=== PATIENT | male | born 1985 | race Caucasian/White ===

== ENCOUNTER 2023-09-25 07:18 | Emergency (ER) | payer OTHER, SELFPAY ==
[2023-09-25 07:19] VITALS: BP 154/93
[2023-09-25 08:17] VITALS: BMI 21.5
--- NOTE | 2023-09-25 09:39 | ED.GENMED ---
History of Present Illness
General
Chief Complaint: Musculo-Skeletal Complaint
Source: patient
Exam Limitations: none
Time Seen by Provider: 09/25/23 08:00
Nursing documentation reviewed up to this point in time: agreed with
Travel History
Have you had any contact with someone who has COVID-19?: No
Do you have any symptoms of coronavirus? Fever > 100 degrees, chills, cough, shortness of breath, sore throat, loss of taste or smell, muscle aches, or headache?: No
History of Present Illness
History of Present Illness:
38-year-old male with past medical history of seizures asthma hypertension presenting to the emergency department today with concerns of right-sided hand discomfort and swelling. He claims that he was banging on the shed due to his cat. He also
may have been bit by his cat he is unsure though. This occurred last night has no swelling today which prompted come to the ER. Denies fevers or systemic symptoms.
Past History
Past History
ED Past Medical History: Asthma, GERD, HTN, NIDDM, Seizures and Other (Seizure episode 4 years ago)
ED Past Surgical History: None
Social History
Tobacco: Former smoker
Alcohol: Binge drinker
Drug: Marijuana
Personal: Single
Living: with roommate
Employment: Employed
Family History
Family History: Other (n/c); Negative CAD
Review of Systems
Review of Systems
Allergies reviewed?: Yes
All Other Systems: ROS reviewed and negative except as documented in HPI and ROS
Phy Exam
Physical Exam
Physical Exam:
GENERAL: Alert , in no apparent distress
EYE: pupils equal and reactive
NECK: Supple, no significant adenopathy.
ENT: o/p clr, mmm.
CARDIAC: Regular rate and rhythm .
LUNGS: Clear breath sounds bilaterally, no acute respiratory distress, no wheezes/rales/rhonchi
ABDOMEN: Soft, without focal tenderness, no r/g, no cvat
NEUROLOGICAL: Alert and oriented, no focal neuro deficits
SKIN: Small scabbed over skin injury to the right hand overlying the second and third metacarpal on the dorsal aspect mild redness and swelling tenderness palpation to the area good range of motion otherwise good workers compensation claims examiner strength. Warm and dry, skin
intact.
MUSCULOSKELETAL: No edema, well perfused.
PSYCH: Normal and appropriate interaction.
Course
Orders/Labs/Results
Orders:
Orders
09/25/23 07:46
CR Hand - Right Min 3 Views Urgent
Comment:
Reason For Exam: pain/swelling
09/25/23 09:36
Amoxicillin 875 mg/Clav 125 mg [Augmentin 875 mg/125 mg] 1 tablet PO NOW STA
Vital Signs
Initial and Last Documented VS:
Initial Vital Signs
Temp Pulse Resp BP Pulse Ox
98.3 F 95 20 154/93 98
09/25/23 07:19 09/25/23 07:19 09/25/23 07:19 09/25/23 07:19 09/25/23 07:19
Last Documented Vital Signs
Temp Pulse Resp BP Pulse Ox
98.3 F 95 20 154/93 98
09/25/23 07:19 09/25/23 07:19 09/25/23 07:19 09/25/23 07:19 09/25/23 07:19
MDM/Problems Addressed
MDM/Problems Addressed:
38-year-old male presenting to the emergency department today with concerns of right-sided hand swelling discomfort starting yesterday was potentially bit by his cat and also hit his hand against a shed door. X-ray without signs of fracture. There
is concern that potentially could be a cat bite though the wounds are scabbed over and very small. Patient was given Augmentin. Area of redness and swelling very minimal was explained to the patient that if there is progression that he should
immediately return for reassessment. Otherwise treated for concern of early infection or as prophylaxis for potential cat bite to the hand.
*Critical Care Note
Total Time (30-74mins, 75-104mins- exclusive of procedures): Not Applicable
ED Attending Note
-
Portions of this chart may have been created with voice recognition software.� Occasional wrong word or��sound alike� substitutions may have occurred due to the inherent limitations of voice recognition software.
Discharge Plan
Departure
Patient Disposition: Home (Routine Discharge)
Date of Disposition: 09/25/23
Time of Disposition: 09:42
Patient with high blood pressure during this ER visit?: No
Condition: Good
Covid-19: Not Applicable
Discharge Problem:
Cat bite of right hand
Instructions: Animal Bites ED
Prescriptions:
New
amoxicillin-pot clavulanate 875-125 mg tablet
1 tab PO BID 7 Days Qty: 14 0RF
No Action
quetiapine [Seroquel] 200 mg Tablet
200 mg PO HS
lorazepam [Ativan] 2 mg Tablet
2 mg PO BID PRN (Reason: anixety)
levetiracetam [Keppra] 500 mg tablet
500 mg PO Q12H Qty: 60 0RF
hydroxyzine pamoate [Vistaril] 100 mg Capsule
100 mg PO HS PRN (Reason: anxiety, sleep)
trazodone 100 mg Tablet
100 mg PO HS
Propanalol
10 mg PO DAILY
ondansetron 4 mg tablet,disintegrating
4 mg PO Q8H PRN (Reason: nausea and vomiting) Qty: 7 0RF
Referrals:
NONE,* [Family Provider] -
Stand Alone Forms: Return to Work
Activity Restrictions/Additional Instructions:
You came to the emergency department today with concerns of swelling discomfort to the right hand. This is concern for a cat bite please take Augmentin twice daily for neck 7 days and keep the area clean and covered. Please have close with the
primary care doctor within 1 week for reassessment. Return to the emergency department for any worsening, new or concerning symptoms.
Interventions
Interventions:
*Risk Screen - Suicide Last Done: 09/25/23 07:19
*General Assessment Last Done: 09/25/23 07:19
*Neglect/Abuse Screening Last Done: 09/25/23 07:19
ED-Musculoskeletal Assessment Last Done: 09/25/23 08:17
Discharge Date and Time
Print Language: AZERI
[2023-09-25] MEDS: AUGMENTIN 875 MG/125 MG 1 TABLET PO (09:43)
== END 2023-09-25 10:01 | disposition home or self-care (01) ==
LOC: EMR 07:18
PROVIDERS: EMERGENCY PHYSICIAN Emergency Medicine
DX: S61.451A Open bite of right hand, initial encounter (principal); W55.01XA Bitten by cat, initial encounter; Z87.891 Personal history of nicotine dependence; I10 Essential (primary) hypertension; J45.909 Unspecified asthma, uncomplicated
CPT/HCPCS: 99283; 73130

== ENCOUNTER 2025-02-20 13:14 | Emergency (ER) | payer OTHER, SELFPAY ==
[2025-02-20] VITALS (8 sets, daily range): BP systolic 128–174; BP diastolic 74–113; BMI 27.4
[2025-02-20 14:01] LABS: Hematocrit 48.5 % (39.0-52.0); Hemoglobin 15.1 g/dL (13.0-18.0); Mean Corp Hgb Conc. 31.1 g/dL (33.0-37.0); Mean Corpuscular Volume 84.8 fL (80.0-94.0); Nucleated Red Blood Cells % 0 % (-); Platelet Count 342 10^3/uL (130-400); Red Cell Dist. Width 17.2 % (11.5-14.5)
[2025-02-20 14:23] LABS: Blood Urea Nitrogen 13 mg/dl (9-20); Calcium 8.7 mg/dl (8.4-10.2); Carbon Dioxide 23 mmol/L (22-30); Chloride 107 mmol/L (98-107); Glucose 122 mg/dl (70-99); Potassium 4.6 mmol/L (3.5-5.1); Sodium 145 mmol/L (135-145); eGFR > 60.00
[2025-02-20] MEDS: MULTIVITAMIN 1011 ML IV (16:34)
[2025-02-20] MEDS: MULTIVITAMIN 1011 MG IV (16:34)
--- NOTE | 2025-02-20 16:46 | ED.GENMED ---
History of Present Illness
<Tristan Estrella MD - Last Filed: 02/21/25 16:46>
General
Chief Complaint: Alcohol Problem
Source: patient and family (Sister)
Time Seen by Provider: 02/20/25 15:29
History of Present Illness
History of Present Illness:
39-year-old male with alcohol use disorder. Presents intoxicated. Family took him directly to [facility] but they felt he needed medical evaluation for his intoxication. Patient admits to depression since his mother has but denies
suicidal ideation or plan. Admits to drinking earlier today.
Past History
<Tristan Estrella MD - Last Filed: 02/21/25 16:46>
Past History
ED Past Medical History: Asthma, GERD, HTN, NIDDM, Seizures and Other (Seizure episode 4 years ago)
ED Past Surgical History: None
Social History
Tobacco: Former smoker
Alcohol: Binge drinker
Drug: Marijuana
Personal: Single
Living: with roommate
Employment: Employed
Family History
Family History: Other (n/c); Negative CAD
Review of Systems
<Tristan Estrella MD - Last Filed: 02/21/25 16:46>
Review of Systems
All Other Systems: Not applicable
Respiratory: Reports no symptoms
Cardiac: Reports no symptoms
Phy Exam
<Tristan Estrella MD - Last Filed: 02/21/25 16:46>
Physical Exam
Physical Exam:
GENERAL: Alert and oriented in no apparent distress. Normocephalic atraumatic
EYE: Orbits normal.
NECK: Supple, nontender mildly tachycardic and regular no murmur
ENT: Pharynx without erythema
CARDIAC: Tachycardic and regular no murmur
LUNGS: Clear breath sounds,normal
ABDOMEN: Soft, without focal tenderness or distention
NEUROLOGICAL: Alert and oriented , grossly non-focal. Moderately intoxicated
SKIN: Warm and dry, no rash or lesion, no discoloration, skin intact.
MUSCULOSKELETAL: No edema,no deformity.Good color
PSYCH: Normal and appropriate interaction. Cooperative. Moderately intoxicated
Scores
<Tristan Estrella MD - Last Filed: 02/21/25 16:46>
Withdrawal Assessment of Alcohol
Withdrawal Assessment Completed?: Not applicable
Course
<Tristan Estrella MD - Last Filed: 02/21/25 16:46>
Orders/Labs/Results
Orders:
Orders
02/20/25 13:46
Alcohol Urgent
Basic Metabolic Panel Urgent
CBC/With Diff [Complete Blood Count/With Diff] Urgent
02/20/25 15:49
0.9% Sodium Chloride 1000 ml [Nss] 1,000 ml Mvi, Adult [Multivitamin] 10 ml Thiamine Injection 100 mg IV 500 mls/hr
02/20/25 16:00
0.9% Sodium Chloride 1000 ml [Nss] 1,000 ml Mvi, Adult [Multivitamin] 10 ml Thiamine Injection 100 mg IV 500 mls/hr
02/20/25 16:47
Ondansetron Injectable [Zofran] 4 mg .ROUTE .STK-MED ONE
02/20/25 16:50
Ondansetron Injectable [Zofran] 4 mg IV NOW STA
02/20/25 17:27
Metoprolol [Lopressor] 5 mg IV NOW STA
02/20/25 17:59
Add On- LAB Urgent
Tests Added?: alcohol level
Mag Hydrox/Al Hydrox/Simeth [Maalox] 30 ml Phenobarb/Hyoscy/Atropine/Scop [] 10 ml PO NOW
Pantoprazole [Protonix IV] 40 mg IV NOW STA
02/20/25 18:00
Phenobarb/Hyoscy/Atropine/Scop [] 10 ml .ROUTE .STK-MED ONE
02/20/25 18:01
Mag Hydrox/Al Hydrox/Simeth [Maalox] 30 ml .ROUTE .STK-MED ONE
02/20/25 18:16
Lorazepam [Ativan] 1 mg PO NOW STA
02/20/25 19:00
Lorazepam [Ativan] 2 mg PO Q4HPRN PRN
Abnormal Lab Results
02/20/25
13:46
MCH 26.4 L pg
(27.0-31.0)
MCHC 31.1 L g/dL
(33.0-37.0)
RDW 17.2 H %
(11.5-14.5)
Absolute Neuts (auto) 6.6 H 10^3/uL
(1.4-6.5)
Glucose 122 H mg/dl
(70-99)
Alcohol, Quantitative 520 H* mg/dl
02/20/25 13:46
02/20/25 13:46
Vital Signs
Initial and Last Documented VS:
Initial Vital Signs
Temp Pulse Resp BP Pulse Ox
98.5 F 127 18 174/106 96
02/20/25 13:21 02/20/25 13:21 02/20/25 13:21 02/20/25 13:21 02/20/25 13:21
Last Documented Vital Signs
Temp Pulse Resp BP Pulse Ox
98.5 F 115 14 128/74 98
02/20/25 13:21 02/20/25 20:45 02/20/25 20:45 02/20/25 20:00 02/20/25 17:15
Marlenlt;Minnie Ariza, DO - Last Filed: 02/20/25 19:46>
Orders/Labs/Results
Orders:
Orders
02/20/25 13:46
Alcohol Urgent
Basic Metabolic Panel Urgent
CBC/With Diff [Complete Blood Count/With Diff] Urgent
02/20/25 15:49
0.9% Sodium Chloride 1000 ml [Nss] 1,000 ml Mvi, Adult [Multivitamin] 10 ml Thiamine Injection 100 mg IV 500 mls/hr
02/20/25 16:00
0.9% Sodium Chloride 1000 ml [Nss] 1,000 ml Mvi, Adult [Multivitamin] 10 ml Thiamine Injection 100 mg IV 500 mls/hr
02/20/25 16:47
Ondansetron Injectable [Zofran] 4 mg .ROUTE .STK-MED ONE
02/20/25 16:50
Ondansetron Injectable [Zofran] 4 mg IV NOW STA
02/20/25 17:27
Metoprolol [Lopressor] 5 mg IV NOW STA
02/20/25 17:59
Add On- LAB Urgent
Tests Added?: alcohol level
Mag Hydrox/Al Hydrox/Simeth [Maalox] 30 ml Phenobarb/Hyoscy/Atropine/Scop [] 10 ml PO NOW
Pantoprazole [Protonix IV] 40 mg IV NOW STA
02/20/25 18:00
Phenobarb/Hyoscy/Atropine/Scop [] 10 ml .ROUTE .STK-MED ONE
02/20/25 18:01
Mag Hydrox/Al Hydrox/Simeth [Maalox] 30 ml .ROUTE .STK-MED ONE
02/20/25 18:16
Lorazepam [Ativan] 1 mg PO NOW STA
02/20/25 19:00
Lorazepam [Ativan] 2 mg PO Q4HPRN PRN
Abnormal Lab Results
02/20/25
13:46
MCH 26.4 L pg
(27.0-31.0)
MCHC 31.1 L g/dL
(33.0-37.0)
RDW 17.2 H %
(11.5-14.5)
Absolute Neuts (auto) 6.6 H 10^3/uL
(1.4-6.5)
Glucose 122 H mg/dl
(70-99)
Alcohol, Quantitative 520 H* mg/dl
02/20/25 13:46
02/20/25 13:46
Vital Signs
Initial and Last Documented VS:
Initial Vital Signs
Temp Pulse Resp BP Pulse Ox
98.5 F 127 18 174/106 96
02/20/25 13:21 02/20/25 13:21 02/20/25 13:21 02/20/25 13:21 02/20/25 13:21
Last Documented Vital Signs
Temp Pulse Resp BP Pulse Ox
98.5 F 115 14 128/74 98
02/20/25 13:21 02/20/25 20:45 02/20/25 20:45 02/20/25 20:00 02/20/25 17:15
<Tristan Estrella MD - Last Filed: 02/21/25 16:46>
MDM/Problems Addressed
Differential Diagnosis Includes:
Patient presents for help for his alcohol use disorder. Clinically there is no acute medical issues going on. He is acutely intoxicated but alert. No indication or reason for checking alcohol levels at this time. His levels would not necessarily
correlate with his clinical neurologic findings. We will give him banana bag fluids observation and contact [facility] for help for his alcohol use disorder. Admits to depression but is not suicidal. Patient sister is going home but states they are
here for support and could come get him if needed.
<Tristan Estrella MD - Last Filed: 02/21/25 16:46>
*Pulse Oximetry
SaO2: 97
Oxygen Mode of Delivery: Room air
Patient hypoxic: no
*Critical Care Note
Total Time (30-74mins, 75-104mins- exclusive of procedures): Not Applicable
<Tristan Estrella MD - Last Filed: 02/21/25 16:46>
Update Note
Update Note:
I talked to [facility] who will talk to the patient. He clearly is noncompliant with the medications. Blood pressures are elevated and reviewing previous records has been chronically elevated. Will restart blood pressure medication. Dose of
Lopressor here for mild tachycardia and hypertension. Will give referral for family practice follow-up for clinic follow-up. At this time and no withdrawal.
Patient will be given a green wrapper for some reflux symptoms. And also Protonix. [facility]iscussed with [facility]. They recommended contacting [facility] to see if they would accept him because of his significant withdrawal seizure issue.
<Minnie Ariza DO - Last Filed: 02/20/25 19:46>
Update Note
Update Note:
I talked to [facility] who will talk to the patient. He clearly is noncompliant with the medications. Blood pressures are elevated and reviewing previous records has been chronically elevated. Will restart blood pressure medication. Dose of
Lopressor here for mild tachycardia and hypertension. Will give referral for family practice follow-up for clinic follow-up. At this time and no withdrawal.
Patient will be given a green wrapper for some reflux symptoms. And also Protonix. Discussed with [facility]. They recommended contacting [facility] to see if they would accept him because of his significant withdrawal seizure issue.
ED Attending Note
<Tristan Estrella MD - Last Filed: 02/21/25 16:46>
-
Portions of this chart may have been created with voice recognition software.� Occasional wrong word or��sound alike� substitutions may have occurred due to the inherent limitations of voice recognition software.
<Minnie Ariza DO - Last Filed: 02/20/25 19:46>
ED Attending Note
ED Attending Note:
Full patient care assumed by me at end of attending shift pending placement for alcohol use disorder with history of alcohol withdrawal seizures. I spoke with Dr. Xiong at [facility] who accepts patient for admission for further care.
Patient is resting comfortably. Additional as needed Ativan is ordered to be available should patient feel anxiety or feelings of withdrawal while awaiting transport.
Discharge Plan
Departure
Patient Disposition: [facility]
Date of Disposition: 02/20/25
Time of Disposition: 19:44
Admit to doctor: Dr Xiong
Patient with high blood pressure during this ER visit?: Yes
Discharge Problem:
Alcohol use disorder
Instructions: Alcohol Use Disorder (DC), BLOOD PRESSURE
Prescriptions:
New
amlodipine 5 mg tablet
5 mg PO DAILY Qty: 30 0RF
No Action
quetiapine [Seroquel] 200 mg Tablet
200 mg PO HS
lorazepam [Ativan] 2 mg Tablet
2 mg PO BID PRN (Reason: anixety)
levetiracetam [Keppra] 500 mg tablet
500 mg PO Q12H Qty: 60 0RF
hydroxyzine pamoate [Vistaril] 100 mg Capsule
100 mg PO HS PRN (Reason: anxiety, sleep)
trazodone 100 mg Tablet
100 mg PO HS
Propanalol
10 mg PO DAILY
ondansetron 4 mg tablet,disintegrating
4 mg PO Q8H PRN (Reason: nausea and vomiting) Qty: 7 0RF
amoxicillin-pot clavulanate 875-125 mg tablet
1 tab PO BID 7 Days Qty: 14 0RF
Referrals:
[facility] [Provider Group] - Next open appointment
[facility] [Outside] - Next open appointment
NONE,* [Family Provider, Internal Medicine]
Activity Restrictions/Additional Instructions:
You clearly should be on blood pressure medications. I gave you prescription. You absolutely need close follow-up with a primary care physician.
I gave you 2 options above.
Follow-up per [facility]
Hospital Transfer
Other hospital: [facility]
I certify that the patient requires transfer: Yes
Discussed case with accepting physician: Dr Xiong
Reason for transfer: higher level of care and medical necessity
Interventions
Interventions:
*Risk Screen - Suicide Last Done: 02/20/25 13:23
*General Assessment Last Done: 02/20/25 15:40
*Neglect/Abuse Screening Last Done: 02/20/25 13:23
*ED- Fall Risk Assessment Last Done: 02/20/25 15:40
*ED COVID-19 Vaccine History Last Done: 02/20/25 15:40
*ED Influenza Vaccine History Last Done: 02/20/25 15:40
*Nursing Disposition Last Done: 02/20/25 21:00
ED- Neurological Assessment Last Done: 02/20/25 15:40
ED-Psychological Assessment Last Done: 02/20/25 15:40
Discharge Date and Time
Discharge Date/Time: 02/20/25 21:00
Print Language: MICRONESIAN
[2025-02-20] MEDS: ZOFRAN 4 MG IV (16:51)
[2025-02-20] MEDS: LOPRESSOR 5 MG IV (18:08)
[2025-02-20] MEDS: MAALOX 40 PO (18:09)
[2025-02-20] MEDS: PROTONIX IV 40 MG IV (18:09)
[2025-02-20] MEDS: ATIVAN 1 MG PO (18:21)
== END 2025-02-20 21:00 | disposition short-term general hospital (02) ==
LOC: EMR 13:14
PROVIDERS: EMERGENCY PHYSICIAN Emergency Medicine
DX: F10.129 Alcohol abuse with intoxication, unspecified (principal); R00.0 Tachycardia, unspecified; F32.A Depression, unspecified; E11.9 Type 2 diabetes mellitus without complications; I10 Essential (primary) hypertension; J45.909 Unspecified asthma, uncomplicated; K21.9 Gastro-esophageal reflux disease without esophagitis; Z63.4 Disappearance and death of family member; Z91.148 Patient's other noncompliance with medication regimen for other reason; Z87.891 Personal history of nicotine dependence
CPT/HCPCS: 99285; 96365; 96366; 96374; 96375 ×2; 80048; 82077; 85025